=== PATIENT | female | born 1980 | race Caucasian/White ===

== ENCOUNTER 2019-11-09 14:24 | Emergency (ER) | payer BC, OTHER ==
[2019-11-09 14:55] LABS: Bilirubin Negative (Negative); Blood, Urine Moderate (Negative); Clarity Cloudy (Clear); Glucose, Urine (Dipstick) Negative (Negative); Leukocyte Negative (Negative); Nitrite Negative (Negative); Protein, Urine (Dipstick) 30 mg/dL (Neg-Trace); Urobilinogen 0.2 mg/dL (Less than 2)
[2019-11-09 14:57] LABS: Pregnancy Test - Urine (BHCG) Negative (Negative); Pregu Control Background? CLEAR/WHITE (CLR/WHITE); Pregu Control Bar Appear? YES (CONTROL BAR)
[2019-11-09] MEDS ORDERED: Ketorolac Tromethamine 30 MG/ML VIAL ONE (14:58)
[2019-11-09 14:59] LABS: Bacteria/HPF Rare-Few HPF (None Seen); Renal Epithelial None Seen HPF (None Seen); Squamous Epithelial 0-3 HPF (0-3); Transitional Epithelial None Seen HPF (None Seen); WBC/HPF 0-3 HPF (0-3)
[2019-11-09 15:00] LABS: Broad Cast None Seen LPF (None Seen); Calcium Oxalate Crystals None Seen HPF (None Seen); Cellular Cast None Seen LPF (None Seen); Epithelial Cast None Seen LPF (None Seen); Fatty Cast None Seen LPF (None Seen); Mucous/LPF 2+ LPF (<2+); Other Casts None Seen LPF (None Seen); Oval Fat Bodies/HPF None Seen HPF (None Seen); Red Blood Cell Cast None Seen LPF (None Seen); Sperm/HPF None Seen HPF (None Seen); Trichomonas/HPF None Seen HPF (None Seen); Triple Phosphate Crystal None Seen HPF (None Seen); Unclassified Crystals None Seen HPF (None Seen); Waxy Cast None Seen LPF (None Seen); White Blood Cell Cast None Seen LPF (None Seen); Yeast-Budding None Seen HPF (None Seen); Yeast-Hyphae None Seen HPF (None Seen)
[2019-11-09 15:41] LABS: #Basophils 0.1 thou/uL (0.0-0.2); #Eosinphils 0.1 thou/uL (0.0-0.7); #Lymphocytes 1.2 thou/uL (1.20-3.40); #Monocytes 0.7 thou/uL (0.11-0.59); #Neutrophils 13.4 thou/uL (1.40-6.50); %Basophils 0.5 % (0.0-1.0); %Eosinophils 0.7 % (0.0-10.0); %Lymphocytes 7.6 % (21.0-51.0); %Monocytes 4.4 % (0.0-10.0); %Neutrophils 86.9 % (42.0-75.0); MDiff Complete? YES; Mean Corpuscular Hemoglobin 24.4 pg (27.0-31.0); Mean Corpuscular Volume 83.9 fL (78.0-98.0); Mean Platelet Volume 8.7 fL (7.4-10.4); Microcytosis SLIGHT = 6-15 cells (100X) (0-5/hpf); Platelet Count 362 thou/uL (130-400); RBC Distribution Width 16.3 % (11.5-14.5); Red Blood Cell (RBC) Count 5.36 mill/uL (4.20-5.40); White Blood Cell (WBC) Count 15.4 thou/uL (4.8-10.8)
[2019-11-09 15:45] LABS: ALT (SGPT) 19 U/L (8-55); AST (SGOT) 26 U/L (5-34); Albumin 4.2 g/dL (3.5-5.0); Alkaline Phosphatase 87 U/L (40-110); Anion Gap 17 mmol/L (10-20); BUN (Urea Nitrogen) 8 mg/dL (7.0-18.7); Bilirubin, Total 0.4 mg/dL (0.2-1.2); Calc. Creatinine Clearance 0 mL/min (70-130); Carbon Dioxide 20 mmol/L (22-29); Chloride 109 mmol/L (98-107); Estimated GFR-MDRD 89; Globulin 3.6 g/dL (2.4-3.5); Glucose 92 mg/dL (70-105); Potassium 4.4 mmol/L (3.5-5.1); Protein, Total 7.8 g/dL (6.0-8.3); Sodium 142 mmol/L (136-145)
--- NOTE | 2019-11-09 21:11 | CT ---
CT ABDOMEN AND PEVLIS WITHOUT CONTRAST: 11/09/[address] of the abdomen and pelvis was done to evaluate right flank pain. Comparison was made with t he prior CT dated 11/08/14. The lung bases are clear. On the top slice through the lungs, there may be a tiny 2 mm nodule in the right lower lobe but this alternatively could be a vessel end and without more slices I cannot commen t on it. I feel the odds of it being significant are extremely low. The liver, spleen, pancreas, gall bladder, adrenal glands, kidneys, and abdominal aorta showed no significant findings within the limit ations of a noncontrast study. No renal calculi were seen, nor is there any hydronephrosis or hydrour eter. No ureteral calculi were seen. The bowel shows no distention or wall thickening. The appendix was identified and appears normal. It is located more midline than normal. There is no free air or free fluid. A 3.9 cm right ovarian cyst is present. Ultrasound would help characterize it further. Previously, th e patient had an enlarged right ovary with a mass density in it. It is much smaller today and today's scan makes this look like only a cyst. An elective ultrasound would be good to do if she has not had one in the recent past. No free air or free fluid was seen in the pelvis. There are no inflammatory changes present. Slight anterior wedging of the T12 vertebral body is no different than the prior sca n. IMPRESSION: 3.9 cm right ovarian cyst. See comments above. This actually is smaller than on the prior CT scan. POS: HOME
== END 2019-11-09 16:07 | disposition home or self-care (01) ==
LOC: BURERS 14:24
DX: R10.31 Right lower quadrant pain (principal)
CPT/HCPCS: 74176; 80053; 81003; 81015; 81025; 85025; J1885